=== PATIENT | female | born 2000 | race Two or more races ===

== ENCOUNTER 2018-08-25 22:56 | Emergency (ER) | payer OTHER ==
[~2018-08-25] VITALS: Ht 165.1 cm; Wt 65.8 kg
== END 2018-08-26 02:34 | disposition home or self-care (01) ==
LOC: ER 22:56
DX: S91.021A Laceration with foreign body, right ankle, initial encounter (principal); W45.8XXA Other foreign body or object entering through skin, initial encounter; Y93.89 Activity, other specified; Y92.89 Other specified places as the place of occurrence of the external cause; Y99.8 Other external cause status